=== PATIENT | female | born 1995 | race Caucasian/White ===

== ENCOUNTER 2017-05-14 14:28 | Emergency (ER) | payer MEDICAID ==
[~2017-05-14] VITALS: Ht 167.6 cm; Wt 108.6 kg
[2017-05-14 14:57] LABS: CLARITY URINE CLEAR (CLEAR); COLOR URINE YELLOW (YELLOW); KETONES URINE NEGATIVE (NEGATIVE); LEUKOCYTE ESTERASE URINE 3+ (NEGATIVE); NITRITE URINE NEGATIVE (NEGATIVE); OCCULT BLOOD URINE 1+ (NEGATIVE); PH URINE 6.5 (4.5-8.0); PROTEIN URINE NEGATIVE (NEGATIVE); SPECIFIC GRAVITY URINE 1.012 (1.005-1.030); UROBILINOGEN URINE 0.2 E.U./dL (0.2-1.0)
[2017-05-14] MEDS ORDERED: KETOROLAC 30MG/ML VIAL IV ONE (15:30)
[2017-05-14 15:51] LABS: BASOPHILS % 0.2 % (0.0-2.0); EOSINOPHILS % 1.2 % (0.0-5.0); HEMATOCRIT. 39.7 % (36.0-48.0); HEMOGLOBIN. 13.6 g/dL (12.0-16.0); LYMPHOCYTES % 13.2 % (20.0-50.0); MEAN CORPUSCULAR HEMOGLOBIN 29.8 pg (28.0-32.0); MEAN PLATELET VOLUME 10.6 fl (7.4-10.4); MONOCYTES % 7.7 % (2.0-8.0); NEUTROPHILS % 77.7 % (40.0-76.0); PLATELET 246 x1000/uL (130-400); RED BLOOD CELL COUNT 4.56 mill/uL (4.2-5.4)
[2017-05-14 15:55] LABS: CHLORIDE 106 mEq/L (98-107)
[2017-05-14 15:56] LABS: PROTHROMBIN TIME 10.8 sec (9.4-11.6)
[2017-05-14] MEDS ORDERED: IOHEXOL-300 100 ML BOTTLE ONE (17:50)
[2017-05-14 18:59] VITALS: BP 115/59
== END 2017-05-14 19:23 | disposition home or self-care (01) ==
LOC: ER 15:53
DX: N39.0 Urinary tract infection, site not specified (principal); E66.9 Obesity, unspecified; Z68.38 Body mass index [BMI] 38.0-38.9, adult
CPT/HCPCS: 36415; 74177; 76830; 76856; 80053; 81003; 81025; 83690; 85025; 85610; 87086; 96374; 99285; J1885; Q9967; Z7610

== ENCOUNTER 2017-05-30 16:26 | Emergency (ER) | payer MEDICAID ==
[~2017-05-30] VITALS: Ht 167.6 cm; Wt 109.0 kg
[2017-05-30 16:36] VITALS: BP 138/96
== END 2017-05-30 19:42 | disposition left against medical advice (07) ==
LOC: ER 16:33
DX: M79.602 Pain in left arm (principal); V43.62XA Car passenger injured in collision with other type car in traffic accident, initial encounter; Y93.89 Activity, other specified; Y92.488 Other paved roadways as the place of occurrence of the external cause
CPT/HCPCS: 81025; 99283